=== PATIENT | male | born 1980 | race Caucasian/White ===

== ENCOUNTER 2023-05-31 11:43 | Outpatient (CLI) | payer OTHER, SELFPAY ==
[2023-05-31 12:11] LABS: Basophils Absolute Auto 0.1 K/mm3 (0.0-0.1); Basophils Percent Auto 0.7 % (0.2-1.2); Eosinophils Absolute Auto 0.1 K/mm3 (0-0.3); Eosinophils Percent Auto 1.3 % (0-4.4); Hematocrit 46.8 % (42.0-52.0); Hemoglobin 15.8 g/dL (14.0-18.0); Immature Granulocyte Absolute 0.04 K/mm3 (0.00-0.031); Immature Granulocyte Percent A 0.4 % (0-0.5); Lymphocytes Absolute Auto 2.14 K/mm3 (0.9-3.2); Mean Corpuscular HGB Conc 33.8 g/dl (32-36); Mean Corpuscular Hemoglobin 31.8 pg (26-34); Mean Corpuscular Volume 94.2 fl (80-100); Mean Platelet Volume 9.8 fl (7.4-10.4); Monocytes Absolute Auto 0.7 K/mm3 (0.1-0.6); Monocytes Percent Auto 7.9 % (2.6-8.5); Neutrophils Absolute Auto 5.8 K/mm3 (1.3-6.7); Neutrophils Percent Auto 65.7 % (45.5-73.1); Platelet Count Result 469 k/mm3 (150-375); Red Blood Count 4.97 M/mm3 (4.6-6.20); Red Cell Distribution Width 12.9 % (11.5-14.5); White Blood Count 8.9 K/mm3 (4.5-10.0)
[2023-05-31 12:33] LABS: Alanine Aminotransferase 24 U/L (6-50); Albumin Level 4.8 g/dL (3.5-5.1); Alkaline Phosphatase 69 U/L (38-126); Anion Gap 7 mmol/L (8-16); Aspartate Amino Transferase 27 U/L (17-59); Bilirubin,Total 0.6 mg/dL (0.2-1.3); Blood Urea Nitrogen 11 mg/dL (9-20); Calcium 9.6 mg/dL (8.4-10.2); Carbon Dioxide 26 mmol/L (22-30); Chloride 105 mmol/L (98-107); Estimated Glomerular Filt Rate > 60; Glucose 101 mg/dL (65-110); Sodium 138 mmol/L (137-145)
[2023-05-31 12:54] LABS: Prostate Specific Antigen 0.7 ng/mL (< OR = 4.0)
== END 2023-05-31 11:44 | disposition home or self-care (01) ==
PROVIDERS: PCP Family Medicine; Visit Provider Family Medicine
DX: Z12.5 Encounter for screening for malignant neoplasm of prostate (principal)
CPT/HCPCS: 36415; 80053; 84153; 85025; G0103

== ENCOUNTER 2023-06-22 12:19 | Outpatient (CLI) | payer OTHER, SELFPAY ==
[2023-06-22 13:03] LABS: Basophils Absolute Auto 0.1 K/mm3 (0.0-0.1); Basophils Percent Auto 0.8 % (0.2-1.2); Eosinophils Absolute Auto 0.2 K/mm3 (0-0.3); Eosinophils Percent Auto 2.1 % (0-4.4); Hematocrit 46.5 % (42.0-52.0); Hemoglobin 15.8 g/dL (14.0-18.0); Immature Granulocyte Absolute 0.05 K/mm3 (0.00-0.031); Immature Granulocyte Percent A 0.5 % (0-0.5); Lymphocytes Absolute Auto 2.68 K/mm3 (0.9-3.2); Lymphocytes Percent Auto 26.9 % (18.3-44.2); Mean Corpuscular Hemoglobin 31.9 pg (26-34); Mean Corpuscular Volume 93.9 fl (80-100); Mean Platelet Volume 9.9 fl (7.4-10.4); Monocytes Absolute Auto 0.9 K/mm3 (0.1-0.6); Monocytes Percent Auto 8.5 % (2.6-8.5); Neutrophils Absolute Auto 6.1 K/mm3 (1.3-6.7); Neutrophils Percent Auto 61.2 % (45.5-73.1); Platelet Count Result 416 k/mm3 (150-375); Red Blood Count 4.95 M/mm3 (4.6-6.20); Red Cell Distribution Width 12.9 % (11.5-14.5)
== END 2023-06-22 12:20 | disposition home or self-care (01) ==
LOC: ANHLAB 12:20
PROVIDERS: PCP Family Medicine; Visit Provider Physician Assistant
DX: D75.839 Thrombocytosis, unspecified (principal); R51.9 Headache, unspecified; Z13.29 Encounter for screening for other suspected endocrine disorder
CPT/HCPCS: 36415; 84443; 85025

== ENCOUNTER 2023-10-18 10:48 | Emergency (ER) | payer OTHER, SELFPAY ==
[2023-10-18] VITALS (17 sets, daily range): BP systolic 109–128; BP diastolic 68–87; PULSE 59–87; RESP 16–20; TEMP 36.3; O2SAT 98–100
--- NOTE | ~2023-10-18 | CT_ITS ---
Noncontrast CT scan of the cervical spine Technique: Multiple contiguous axial [address] images of the cervical spine were obtained and rec onstructed in 2D sagittal and coronal planes on the acquisition scanner. Dose reduction technique was used on this scan by utilizing automated exposure control, adjustment of the mA and/or kV according to patient size. The dose-length product (DLP) was 264.09 mGy-cm. Clinical History: Left arm radiculopathy Findings: No fractures or dislocations. There is mild reversal of the normal cervical lordosis. Ther e is mild degenerative change at C5-C6. Possible mild left neural foraminal narrowing at C5-C6. Remai darrell neural foramina appear intact. No prevertebral soft tissue swelling. Impression: No fracture or subluxation of the cervical spine. Mild degenerative spondylosis at C5-C6, as detailed above. Reviewed, dictated and finalized at [facility]. Impression: No fracture or subluxation of the cervical spine. Mild degenerative spondylosis at C5-C6, as detailed above.
--- NOTE | ~2023-10-18 | XR_ITS ---
EXAMINATION: XR chest 2V DATE: 10/18/2023 11:28 INDICATION: Chest pain. Heart flutter. TECHNIQUE: Frontal and lateral views of the chest were obtained. COMPARISON: None. FINDINGS: There is mild scarring at left lung apex. There is no pneumonia, pleural effusion, or pneum othorax. The heart size is normal. IMPRESSION: 1. Mild scarring at left lung apex. Reviewed, dictated and finalized at location A.
--- NOTE | ~2023-10-18 | CT_ITS ---
Non-contrast Head CT History: Left arm weakness Technique: Axial non-contrast imaging of the brain was performed. Dose reduction technique was used on this scan by utilizing automated exposure control and iterative reconstruction technique. The dose -length product (DLP) was 605.33 mGy-cm. Findings: There is no evidence of intracranial hemorrhage, mass lesion, or acute infarct. Brain par enchyma appears normal. The ventricles and subarachnoid spaces are normal in size. The calvarium ap pears normal. The visualized paranasal sinuses and mastoid air cells are clear. Impression: No significant abnormality seen. Reviewed, dictated and finalized at location . Impression: No significant abnormality seen.
--- NOTE | 2023-10-18 10:54 | ECG_ITS ---
SEE SCANNED COPY FOR CONFIRMED REPORT. MTDD
[2023-10-18] MEDS: ASPIRIN 81 MG CHEWABLE TABLET 324 MG PO (11:12)
[2023-10-18 11:16] LABS: Basophils Absolute Auto 0.1 K/mm3 (0.0-0.1); Basophils Percent Auto 0.9 % (0.2-1.2); Eosinophils Absolute Auto 0.2 K/mm3 (0-0.3); Eosinophils Percent Auto 1.9 % (0-4.4); Hematocrit 48.3 % (42.0-52.0); Hemoglobin 15.9 g/dL (14.0-18.0); Immature Granulocyte Absolute 0.02 K/mm3 (0.00-0.031); Immature Granulocyte Percent A 0.2 % (0-0.5); Lymphocytes Absolute Auto 2.22 K/mm3 (0.9-3.2); Lymphocytes Percent Auto 25.1 % (18.3-44.2); Mean Corpuscular HGB Conc 32.9 g/dl (32-36); Mean Corpuscular Hemoglobin 31.2 pg (26-34); Mean Corpuscular Volume 94.9 fl (80-100); Mean Platelet Volume 9.9 fl (7.4-10.4); Monocytes Absolute Auto 0.7 K/mm3 (0.1-0.6); Monocytes Percent Auto 7.9 % (2.6-8.5); Neutrophils Absolute Auto 5.7 K/mm3 (1.3-6.7); Platelet Count Result 440 k/mm3 (150-375); Red Blood Count 5.09 M/mm3 (4.6-6.20); Red Cell Distribution Width 12.7 % (11.5-14.5); White Blood Count 8.8 K/mm3 (4.5-10.0)
[2023-10-18 11:25] LABS: Alanine Aminotransferase 21 U/L (6-50); Albumin Level 4.8 g/dL (3.5-5.1); Alkaline Phosphatase 70 U/L (38-126); Anion Gap 8 mmol/L (4-12); Aspartate Amino Transferase 29 U/L (17-59); Bilirubin,Total 0.5 mg/dL (0.2-1.3); Blood Urea Nitrogen 14 mg/dL (9-20); Calcium 9.5 mg/dL (8.4-10.2); Carbon Dioxide 26 mmol/L (22-30); Chloride 106 mmol/L (98-107); Estimated CRCL calculation 99 ml/min; Estimated Glomerular Filt Rate > 60; Glucose 105 mg/dL (65-110); Lipase 108 U/L (23-300); Sodium 140 mmol/L (137-145)
[2023-10-18 11:30] LABS: INR 0.9; Prothrombin Time 13.1 Seconds (11.1-14.7)
[2023-10-18 11:31] LABS: Partial Thromboplastin Time 28.5 Seconds (22.3-36.8)
[2023-10-18 11:37] LABS: Troponin I < 0.012 ng/mL (0.000-0.034)
--- NOTE | 2023-10-18 12:39 | ED.CHESTPAIN ---
HPI - Chest Pain General Chief Complaint: Chest Pain Stated Complaint: left arm numbness Time Seen by Provider: 10/18/23 11:57 History of Present Illness HPI narrative: 43-year-old male presenting to the emergency department for evaluation multiple complaints. Patient states that he previously had issues with numbness of his right arm that was from the right elbow down and this was thought to be due to a lateral epicondylitis. Patient states over the last few weeks he has had intermittent tingling over the left arm that radiates from neck down to his left thumb. Patient describes it as static going down the arm. Patient denies any associated weakness with this. Patient also describes intermittent chest pressure. Patient denies any prior history of AL. patient reports previously the right arm neurologic issues were worked up at [facility]. Related Data Home Medications Medication Instructions Recorded Confirmed No Home Medications 09/28/23 09/28/23 Allergies Allergy/AdvReac Type Severity Reaction Status Date / Time No Known Allergies Allergy Unknown Verified 10/18/23 10:50 Review of Systems Review of Systems: All systems reviewed & are unremarkable except as noted in HPI and below PMFSH Past Medical History Medical History (Updated 10/18/23 @ 15:09 by Drake Mark MD) Anxious appearance BMI between 19-24,adult Hidradenitis Perineum pain, male Tobacco dependence Surgical History Surgical History Hx of appendectomy Hx of LASIK Family History Family History Father Nerve damage Mother COPD (chronic obstructive pulmonary disease) Anxiety Sibling No problems noted. Social History Social History Smoking status: Current every day smoker Tobacco type: cigarettes Second hand tobacco smoke exposure: Yes Alcohol intake: current Substance use: current Substance use type: marijuana Do You Feel Safe in your Home?: Yes Lack of Transportation: No Lack of Food: Never True Current Housing: I Have Housing Concerned About Future Housing: No Difficulty Paying Gas/Electric Bills: No Difficulty Paying for Meds: No Currently Unemployed: No Education: Trade/Vocational Certificate Difficulty w/ Childcare or Family Care: No Living arrangements: with family Occupation/Education: occupation 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 HEAD: normocephalic, atraumatic. EYES: PERRLA/EOMI, conjunctivae clear. NOSE: Normal no drainage EARS:TMS clear with good light reflex. THROAT: Pharynx clear, no exudate. NECK: Supple. No adenopathy, no masses. RESPIRATORY: Airway patent, respirations nonlabored. Clear to auscultation bilaterally, no rales, rhonchi, wheezing. CARDIOVASCULAR: Regular rate and rhythm without murmurs rubs or gallops. ABDOMINAL: Soft, nontender, nondistended, normal bowel sounds MUSCULOSKELETAL: Moves all extremities. Strength/ROM intact, No edema, No calf tenderness. NEURO: Alert. Cranial nerves II through XII intact. Grossly intact SKIN: Warm, dry. Normal Color Course Vital Signs Vital signs: Vital Signs Temperature 97.4 F L 10/18/23 10:52 Pulse Rate 78 10/18/23 10:52 Respiratory Rate 16 10/18/23 10:52 Blood Pressure 128/74 10/18/23 10:52 Pulse Oximetry 98 10/18/23 10:52 Temperature 97.4 F L 10/18/23 10:52 Pulse Rate 60 10/18/23 15:00 Respiratory Rate 16 10/18/23 15:00 Blood Pressure 128/86 10/18/23 15:00 Pulse Oximetry 100 10/18/23 15:00 Oxygen Delivery Room Air 10/18/23 12:09 MDM - Chest Pain MDM Narrative Medical decision making narrative: 43-year-old male presented to [facility]
--- NOTE | 2023-10-18 14:07 | ECG_ITS ---
SEE SCANNED COPY FOR CONFIRMED REPORT. MTDD
[2023-10-18 14:37] LABS: Troponin I < 0.012 ng/mL (0.000-0.034)
== END 2023-10-18 15:10 | disposition home or self-care (01) ==
PROVIDERS: Emergency Provider Emergency Medicine; PCP Family Medicine
DX: R07.89 Other chest pain (principal); M47.22 Other spondylosis with radiculopathy, cervical region; F17.210 Nicotine dependence, cigarettes, uncomplicated
CPT/HCPCS: 36415; 70450; 71046; 72125; 80053; 83690; 84484; 85025; 85610; 85730; 93005; 99284; A9270